=== PATIENT | female | born 1970 | race Caucasian/White ===

== ENCOUNTER 2016-11-03 10:26 | Outpatient (CLI) | payer MEDICAID | END 2016-11-03 10:27 | disposition home or self-care (01) | DX: M50.30 Other cervical disc degeneration, unspecified cervical region (principal); M51.36 Other intervertebral disc degeneration, lumbar region; M47.816 Spondylosis without myelopathy or radiculopathy, lumbar region ==

== ENCOUNTER 2016-11-19 16:14 | Emergency (ER) | payer MEDICAID | END 2016-11-19 17:30 | disposition home or self-care (01) | DX: S93.431A Sprain of tibiofibular ligament of right ankle, initial encounter (principal); W01.0XXA Fall on same level from slipping, tripping and stumbling without subsequent striking against object, initial encounter; Y93.01 Activity, walking, marching and hiking; E11.9 Type 2 diabetes mellitus without complications; Z79.84 Long term (current) use of oral hypoglycemic drugs; Z86.73 Personal history of transient ischemic attack (TIA), and cerebral infarction without residual deficits ==

== ENCOUNTER 2017-01-18 08:52 | Outpatient (CLI) | payer MEDICAID | END 2017-01-18 08:53 | disposition home or self-care (01) | DX: E78.5 Hyperlipidemia, unspecified (principal); E03.9 Hypothyroidism, unspecified ==

== ENCOUNTER 2017-04-27 16:49 | Outpatient (CLI) | payer MEDICAID ==
--- NOTE | 2017-04-28 12:34 | XRAY Report ---
TWO VIEW CHEST: 04/27/2017 CLINICAL INDICATION: Cough. FINDINGS: Frontal and lateral views of the chest demonstrate a normal cardiac silhouette. The lungs are clear. No effusion or pneumothorax. IMPRESSION: NORMAL CHEST. :9 JOB #: [id number] EXT JOB #:[id number]
== END 2017-04-27 16:50 | disposition home or self-care (01) ==
LOC: DI.S 16:49
PROVIDERS: ATTEND Nurse Practitioner Family
DX: R05 Cough (principal)
CPT/HCPCS: 71020

== ENCOUNTER 2017-05-31 10:46 | Outpatient (CLI) | payer MEDICAID ==
[2017-05-31 14:08] LABS: CHOL/HDL RATIO 6.1 (<4.4); CHOLESTEROL 275 mg/dL; HDL CHOLESTEROL 45 mg/dL; LDL/HDL RATIO 3.4 (<4.4); TRIGLYCERIDES 396 mg/dL; VLDL CHOLESTEROL 79 mg/dL
[2017-05-31 14:31] LABS: THYROID STIMULATING HORMONE 1.41 uIU/mL (0.34-5.60)
== END 2017-05-31 10:47 | disposition home or self-care (01) ==
LOC: LAB.N 10:46
PROVIDERS: ATTEND Nurse Practitioner Family
DX: E78.5 Hyperlipidemia, unspecified (principal); E03.9 Hypothyroidism, unspecified
CPT/HCPCS: 36415; 80061; 84439; 84443

== ENCOUNTER 2017-06-15 23:38 | Outpatient (CLI) | payer MEDICAID ==
[2017-06-15 19:13] LABS: HEMOGLOBIN A1C 0.54 g/dL
== END 2017-06-15 23:39 | disposition home or self-care (01) ==
LOC: LAB.N 23:38
PROVIDERS: ATTEND Nurse Practitioner Family
DX: E11.9 Type 2 diabetes mellitus without complications (principal)
CPT/HCPCS: 36415; 83036

== ENCOUNTER 2017-08-04 08:23 | Outpatient (CLI) | payer MEDICAID ==
[2017-08-04 13:57] LABS: BILIRUBIN,TOTAL 0.5 mg/dL (0.2-1.0); CHOL/HDL RATIO 4.2 (<4.4); CHOLESTEROL 152 mg/dL; HDL CHOLESTEROL 36 mg/dL; LDL/HDL RATIO 1.8 (<4.4); TOTAL PROTEIN 7.1 g/dL (6.7-8.2); TRIGLYCERIDES 248 mg/dL; VLDL CHOLESTEROL 50 mg/dL
[2017-08-04 13:59] LABS: BILIRUBIN,DIRECT < 0.1 mg/dL (0.1-0.5)
== END 2017-08-04 08:24 | disposition home or self-care (01) ==
LOC: LAB.N 08:23
PROVIDERS: ATTEND Nurse Practitioner Family
DX: E78.5 Hyperlipidemia, unspecified (principal)
CPT/HCPCS: 36415; 80061; 80076

== ENCOUNTER 2018-01-17 08:00 | Outpatient (CLI) | payer BC, MEDICAID ==
[2018-01-17 17:37] LABS: BILIRUBIN,URINE NEGATIVE (NEGATIVE); GLUCOSE, URINE (UA) NEGATIVE (NEGATIVE); KETONES,URINE (UA) NEGATIVE (NEGATIVE); LEUKOCYTE ESTERASE, URINE NEGATIVE (NEGATIVE); NITRITE,URINE NEGATIVE (NEGATIVE); OCCULT BLOOD,URINE NEGATIVE (NEGATIVE); PROTEIN,URINE NEGATIVE (NEGATIVE); UROBILINOGEN,URINE 0.2 (NORMAL) E.U./dL (NORMAL)
[2018-01-17 17:44] LABS: CLARITY,URINE CLEAR (CLEAR)
[2018-01-17 17:57] LABS: BACTERIA,URINE None Seen /HPF (None Seen); RBC,URINE None Seen /HPF (0-5); SQUAMOUS EPITHELIAL CELL,UR RARE Squamous (<= Few)
== END 2018-01-17 08:01 ==
LOC: LAB.R 08:00
PROVIDERS: ATTEND Nurse Practitioner Family
DX: R30.0 Dysuria (principal)
CPT/HCPCS: 81001; 87086

== ENCOUNTER 2018-01-30 12:03 | Outpatient (CLI) | payer BC ==
--- NOTE | 2018-01-31 14:30 | XRAY Report ---
LEFT HIP AND PELVIS: 01/30/2018 CLINICAL INDICATION: Left hip joint pain. FINDINGS: Frontal view of the hips and pelvis and frogleg lateral view of the left hip demonstrate no evidence of fracture or dislocation. Mild osteoarthritis is present. No foreign body is seen in the soft tissues. IMPRESSION: MILD LEFT HIP OSTEOARTHRITIS. TD: 01/31/2018 12:56
== END 2018-01-30 12:04 | disposition home or self-care (01) ==
LOC: DI.S 12:03
PROVIDERS: ATTEND Nurse Practitioner Family
DX: M16.12 Unilateral primary osteoarthritis, left hip (principal)

== ENCOUNTER 2018-07-05 09:46 | Outpatient (CLI) | payer BC ==
[2018-07-05 14:57] LABS: BASOPHILS # (AUTO) 0.1 10^3/uL (0.0-0.1); BASOPHILS % (AUTO) 1.4 %; EOSINOPHILS # (AUTO) 0.5 10^3/uL (0.0-0.7); EOSINOPHILS % (AUTO) 6.6 %; HGB - HEMOGLOBIN 12.2 g/dL (12.0-16.0); LYMPHOCYTES # (AUTO) 1.9 10^3/uL (1.5-3.5); LYMPHOCYTES % (AUTO) 26.4 %; MEAN CORPUSCULAR HEMOGLOBIN 30.8 pg (27.0-31.0); MEAN CORPUSCULAR HGB CONC 34.6 g/dL (32.0-36.0); MEAN CORPUSCULAR VOLUME 88.8 fL (81.0-99.0); MEAN PLATELET VOLUME 9.6 fL (7.9-10.8); MONOCYTES # (AUTO) 0.4 10^3/uL (0.0-1.0); MONOCYTES % (AUTO) 6.2 %; NEUTROPHILS # (AUTO) 4.3 10^3/uL (1.5-6.6); NEUTROPHILS % (AUTO) 59.4 %; PLT - PLATELET COUNT 314 10^3/uL (130-450); RED BLOOD COUNT 3.97 10^6/uL (4.20-5.40); RED CELL DISTRIBUTION WIDTH 13.3 % (12.0-15.0); WHITE BLOOD COUNT 7.3 x10^3/uL (4.8-10.8)
[2018-07-05 15:08] LABS: ALBUMIN 3.9 g/dL (3.2-5.5); ALBUMIN/GLOBULIN RATIO 1.3 (1.0-2.2); ALKALINE PHOSPHATASE 66 IU/L (42-121); ALT ALANINE AMINOTRANSFERASE 19 IU/L (10-60); AST ASPARTATE AMINOTRANSFERASE 21 IU/L (10-42); BILIRUBIN,TOTAL 0.7 mg/dL (0.2-1.0); BUN - BLOOD UREA NITROGEN 8 mg/dL (6-20); CALCIUM 9.4 mg/dL (8.5-10.3); CARBON DIOXIDE - CO2 28 mmol/L (21-32); CHLORIDE 100 mmol/L (101-111); CHOL/HDL RATIO 6.8 (<4.4); CHOLESTEROL 257 mg/dL; CREATININE 0.8 mg/dL (0.4-1.0); GFR - MDRD 77 (>89); GLUCOSE 110 mg/dL (70-100); HDL CHOLESTEROL 38 mg/dL; SODIUM 138 mmol/L (135-145)
[2018-07-05 15:32] LABS: HB2 TOTAL 12.3 g/dL; HEMOGLOBIN A1C 0.54 g/dL; HEMOGLOBIN A1C % 6.2 % (4.6-6.2)
[2018-07-05 15:34] LABS: LDL CHOLESTEROL,DIRECT 125 mg/dL; LDLD/HDL RATIO 3.3 (<4.4)
== END 2018-07-05 09:47 | disposition home or self-care (01) ==
LOC: LAB.N 09:46
PROVIDERS: ATTEND Nurse Practitioner Family
DX: E11.9 Type 2 diabetes mellitus without complications (principal); E78.5 Hyperlipidemia, unspecified; E03.9 Hypothyroidism, unspecified
CPT/HCPCS: 36415; 80053; 80061; 82043; 83036; 83721; 84443; 85025

== ENCOUNTER 2018-07-17 15:38 | Emergency (ER) | payer BC ==
--- NOTE | 2018-07-17 15:46 | ED Physician Documentation ---
PD HPI UPPER EXT INJURY - Stated complaint Stated Complaint: RT ELBOW INJ - History obtained from History obtained from: Patient - History of Present Illness Location: Right (She fell on her right elbow 10 days ago, mechanical fall and had persistent pain that was much worse this morning when she rolled over in bed and felt a pop or a snap. No other injuries. 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 - Present Medications Home Medications: Ambulatory Orders Medication Instructions Recorded Confirmed Gabapentin 300 mg PO TID 09/30/14 08/06/16 Levothyroxine [Synthroid] 25 mcg PO QDAC 09/30/14 08/06/16 Metformin HCl 1,000 mg PO BID 09/30/14 08/06/16 Red Yeast Rice 600 mg PO DAILY 09/30/14 08/06/16 Venlafaxine [Effexor] 37.5 mg PO DAILY 09/30/14 08/06/16 Doxycycline Hyclate 100 mg PO BID #14 tablet 08/06/16 Meloxicam 22.5 tab PO DAILY 08/06/16 08/06/16 Mupirocin 1 gm TOP BID #2 tub 08/06/16 - Allergies Allergies/Adverse Reactions: Allergies Allergy/AdvReac Type Severity Reaction Status Date / Time Sulfa (Sulfonamide Allergy Rash Verified 07/17/18 15:50 Antibiotics) codeine AdvReac Nausea Verified 07/17/18 15:50 hydromorphone HCl * AdvReac Unknown Verified 07/17/18 15:50 [From Dilaudid] - Social History Does the pt smoke?: No Smoking Status: Never smoker Does the pt drink ETOH?: Yes Does the pt have substance abuse?: No - Immunizations Immunizations are current?: Yes Immunizations: TDAP >10years/unknown - POLST Patient has POLST: No PD ED PE NORMAL - Vitals Vital signs reviewed: Yes - General General: Alert and oriented X 3, No acute distress - Neck Neck: Supple, no meningeal sign, No bony TTP - Extremities Extremities: Other (Right elbow is mildly tender over the medial epicondyles and olecranon, relatively good range of motion but unable to extend it all the way.) - Neuro Neuro: Alert and oriented X 3, Normal speech Results - Vitals Vitals: Oxygen O2 Source Room air - Rads (name of study) R elbow XR Radiology: EMP read contemporaneously (normal) PD MEDICAL DECISION MAKING - Sepsis Event Vital Signs: Oxygen O2 Source Room air Departure - Departure Disposition: 01 Home, Self Care Clinical Impression: Contusion of right elbow Qualifiers: Encounter type: initial encounter Qualified Code(s): S50.01XA - Contusion of right elbow, initial encounter Condition: Good Record reviewed to determine appropriate education?: Yes Instructions: ED Contusion Elbow Ch Comments: Tylenol or ibuprofen as needed for pain. Return if worse or if there are new symptoms develop. Follow-up with your doctor in a week if not better. Your blood pressure was elevated today on check into the emergency department. This does not mean that you have hypertension, it is a common phenomenon to come to the emergency department and have elevated blood pressure. I recommend that you see your primary care physician within the week to have it rechecked when you are feeling better.
[2018-07-17 15:50] VITALS: BP 129/92
--- NOTE | 2018-07-17 16:33 | XRAY Report ---
Reason: elbow inj Procedure Date: 07/17/2018 Accession Number: [id number] / [id number] Procedure: XR - Elbow 3 View RT CPT Code: FULL RESULT: EXAM: RIGHT ELBOW RADIOGRAPHY EXAM DATE: 07/17/2018 04:03 PM. CLINICAL HISTORY: Trauma, pain. COMPARISON: None. TECHNIQUE: 3 views. FINDINGS: Bones: Normal. No fractures or bone lesions. Joints: Normal. No effusion. No subluxation. Soft Tissues: Unremarkable. IMPRESSION: Normal elbow radiography. RADIA
== END 2018-07-17 16:46 | disposition home or self-care (01) ==
LOC: ED 15:38
DX: S50.01XA Contusion of right elbow, initial encounter (principal); X50.1XXA Overexertion from prolonged static or awkward postures, initial encounter; W19.XXXA Unspecified fall, initial encounter; R03.0 Elevated blood-pressure reading, without diagnosis of hypertension; E11.9 Type 2 diabetes mellitus without complications; Z79.84 Long term (current) use of oral hypoglycemic drugs
CPT/HCPCS: 99282; 99283

== ENCOUNTER 2018-12-03 20:54 | Outpatient (CLI) | payer BC ==
--- NOTE | 2018-12-04 12:18 | Ultrasound Report ---
Reason: PELVIC PAIN Procedure Date: 12/03/2018 Accession Number: [id number] / [id number] Procedure: US - Pelvic w/Transvaginal CPT Code: FULL RESULT: EXAM: PELVIC ULTRASOUND EXAM DATE: 12/03/2018 09:20 PM. CLINICAL HISTORY: PELVIC PAIN. COMPARISON: None. TECHNIQUE: Realtime transabdominal pelvic scan performed to identify the uterus and adnexa and as an overview of other pelvic structures, with static image documentation. FINDINGS: Visualization is limited due to a combination of patient body habitus and uterine angle. Uterus: 7.1 x 2.0 x 3.2 cm, volume 25 cc. Retroflexed position. Normal overall size and echotexture. Masses: None. Endometrium: 4 mm. Normal. Cervix: Unremarkable. Right Ovary: 1.6 x 1.1 x 1.4 cm, volume 1.3 cc. Normal echotexture and blood flow. Left Ovary: The ovary is not confidently identified. Free Fluid: None. Other: None. IMPRESSION: Limited visualization with LAD identified. RADIA
== END 2018-12-03 20:55 | disposition home or self-care (01) ==
LOC: DI 20:54
PROVIDERS: ATTEND Registered Nurse
DX: R10.2 Pelvic and perineal pain (principal)
CPT/HCPCS: 76830; 76856

== ENCOUNTER 2019-07-30 11:32 | Outpatient (CLI) | payer BC ==
[2019-07-30 19:40] LABS: HB2 TOTAL 12.6 g/dL; HEMOGLOBIN A1C 0.59 g/dL; HEMOGLOBIN A1C % 6.4 % (4.6-6.2)
[2019-07-30 21:04] LABS: ALBUMIN/GLOBULIN RATIO 1.3 (1.0-2.2); ALKALINE PHOSPHATASE 67 IU/L (42-121); ALT ALANINE AMINOTRANSFERASE 18 IU/L (10-60); AST ASPARTATE AMINOTRANSFERASE 22 IU/L (10-42); BILIRUBIN,TOTAL 0.6 mg/dL (0.2-1.0); BUN - BLOOD UREA NITROGEN 11 mg/dL (6-20); CARBON DIOXIDE - CO2 28 mmol/L (21-32); CHLORIDE 105 mmol/L (101-111); CHOL/HDL RATIO 7.1 (<4.4); CHOLESTEROL 250 mg/dL; CREATININE 0.6 mg/dL (0.4-1.0); GFR - MDRD 107 (>89); GLUCOSE 106 mg/dL (70-100); HDL CHOLESTEROL 35 mg/dL; SODIUM 140 mmol/L (135-145)
[2019-07-30 21:31] LABS: LDL CHOLESTEROL,DIRECT 109 mg/dL; LDLD/HDL RATIO 3.1 (<4.4)
== END 2019-07-30 23:59 | disposition home or self-care (01) ==
LOC: LAB.N 11:32
PROVIDERS: ATTEND Internal Medicine
DX: E78.5 Hyperlipidemia, unspecified (principal); E11.9 Type 2 diabetes mellitus without complications; E03.9 Hypothyroidism, unspecified
CPT/HCPCS: 36415; 80053; 80061; 83036; 83721; 84443

== ENCOUNTER 2020-01-06 17:25 | Outpatient (CLI) | payer BC | END 2020-01-06 17:26 | disposition home or self-care (01) | LOC: COV 17:25 | PROVIDERS: ATTEND Family Medicine | DX: R05 Cough (principal) | CPT/HCPCS: 81599 ==

== ENCOUNTER 2021-09-17 15:37 | Outpatient (CLI) | payer BC | END 2021-09-17 23:59 | disposition home or self-care (01) | LOC: LAB.N 15:37 | PROVIDERS: ATTEND Family Medicine | DX: R05.9 Cough, unspecified (principal); Z20.822 Contact with and (suspected) exposure to COVID-19 | CPT/HCPCS: 87275; 87276 ==

== ENCOUNTER 2021-11-03 08:00 | Outpatient (CLI) | payer BC | END 2021-11-03 23:59 | LOC: LAB 08:00 | PROVIDERS: ATTEND Physician Assistant | DX: J02.9 Acute pharyngitis, unspecified (principal); Z20.822 Contact with and (suspected) exposure to COVID-19 | CPT/HCPCS: 87070 ==

== ENCOUNTER 2021-12-27 08:00 | Outpatient (CLI) | payer BC ==
--- NOTE | 2021-12-27 16:43 | XRAY Report ---
PROCEDURE: Finger(s) RT INDICATIONS: SPRAIN OF R THUMB TECHNIQUE: AP hand, 3 views of the first finger(s) acquired. COMPARISON: None FINDINGS: Bones: No fractures or dislocations. No suspicious bony lesions. Soft tissues: No suspicious soft tissue calcifications. IMPRESSION: No visualized acute fracture or dislocation. However, occult injury cannot be excluded. Recommend asia rt interval imaging follow-up in 7-10 days as clinically indicated for additional evaluation. Reviewed by: Mirta Rios MD on 12/27/2021 4:42 PM PDT Approved by: Mirta Rios MD on 12/27/2021 4:42 PM PDT Station ID: [id number]
== END 2021-12-27 23:59 | disposition home or self-care (01) ==
LOC: DI.N 08:00
PROVIDERS: ATTEND Physician Assistant Medical
DX: S63.681A Other sprain of right thumb, initial encounter (principal)

== ENCOUNTER 2023-06-19 20:35 | Outpatient (CLI) | payer BC | END 2023-06-19 23:59 | disposition critical access hospital (66) | LOC: EMS 20:35 | DX: R55 Syncope and collapse (principal); R51.9 Headache, unspecified | CPT/HCPCS: A0425; A0429 ==

== ENCOUNTER 2023-06-19 20:54 | Emergency (ER) | payer BC ==
--- NOTE | 2023-06-19 21:30 | ED Physician Documentation ---
History of Present Illness - Stated complaint Stated Complaint: SYNCOPY - Chief complaint Chief Complaint: General - History obtained from History obtained from: Patient, EMS - Additonal information Additional information: 52-year-old female presents for possible syncopal episode occurred just prior to arrival. Patient states that she had just finished a "screaming match" with her daughter when she went to go do laundry. She felt lightheaded and then "slumped" against the wall and sat on the floor. She seemed to be completely out of it and sat against the ground until her male roommate found her and called 911. Vital signs unremarkable per EMS. On arrival patient stated that she felt "tired" but otherwise denied complaints. Denied preceding chest pain, shortness of breath, headache, abdominal pain prior to syncopal event. Review of Systems Constitutional: reports: Fatigue. denies: Fever, Chills Cardiac: denies: Chest pain / pressure, Palpitations, Calf pain Respiratory: denies: Dyspnea, Cough, Wheezing GI: denies: Abdominal Pain, Nausea, Vomiting, Constipation, Diarrhea Musculoskeletal: denies: Neck pain, Back pain, Extremity pain Neurologic: reports: Syncope. 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 - Present Medications Home Medications: Ambulatory Orders Medication Instructions Recorded Confirmed Gabapentin 300 mg PO TID 09/30/14 08/06/16 Levothyroxine [Synthroid] 25 mcg PO QDAC 09/30/14 08/06/16 Metformin HCl 1,000 mg PO BID 09/30/14 08/06/16 Red Yeast Rice 600 mg PO DAILY 09/30/14 08/06/16 Venlafaxine [Effexor] 37.5 mg PO DAILY 09/30/14 08/06/16 Doxycycline Hyclate 100 mg PO BID #14 tablet 08/06/16 Meloxicam 22.5 tab PO DAILY 08/06/16 08/06/16 Mupirocin 1 gm TOP BID #2 tub 08/06/16 - Allergies Allergies/Adverse Reactions: Allergies Allergy/AdvReac Type Severity Reaction Status Date / Time Sulfa (Sulfonamide Allergy Rash Verified 07/17/18 15:50 Antibiotics) codeine AdvReac Nausea Verified 07/17/18 15:50 hydromorphone HCl * AdvReac Unknown Verified 07/17/18 15:50 [From Dilaudid] - Social History Does the pt smoke?: No Smoking Status: Never smoker Does the pt drink ETOH?: Yes Does the pt have substance abuse?: No - Immunizations Immunizations are current?: Yes Immunizations: TDAP >10years/unknown - POLST Patient has POLST: No PD ED PE NORMAL - Vitals Vital signs reviewed: Yes - General General: Alert and oriented X 3, No acute distress, Well developed/nourished - HEENT HEENT: Atraumatic, PERRL, EOMI - Neck Neck: Supple, no meningeal sign, No bony TTP, C-Spine cleared by NEXUS criteria - Cardiac Cardiac: RRR, Strong equal pulses - Respiratory Respiratory: No respiratory distress, Clear bilaterally - Abdomen Abdomen: Soft, Non tender, Non distended - Back Back: No CVA TTP, No spinal TTP - Derm Derm: Normal color, Warm and dry, No rash - Extremities Extremities: No deformity, No tenderness to palpate, Normal ROM s pain, No edema - Neuro Neuro: Alert and oriented X 3, 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, No motor deficit, Normal speech - Psych Psych: Normal mood, Normal affect Results - Vitals Vitals: Vital Signs - 24 hr 06/19/23 06/19/23 06/19/23 21:03 21:54 23:27 Temperature 37 C 37 C 36.4 C L Heart Rate 71 72 71 Respiratory 14 20 20 Rate Blood Pressure 128/78 131/75 H 114/72 O2 Saturation 100 100 96 Oxygen O2 Source Room air - Labs Labs: Laboratory Tests 06/19/23 06/19/23 06/19/23 21:44 21:44 21:47 WBC 9.8 RBC 3.95 L Hgb 12.0 Hct 36.6 L MCV 92.7 MCH 30.4 MCHC 32.8 RDW 13.1 Plt Count 349 MPV 9.9 Neut # (Auto) 6.0 Lymph # (Auto) 2.6 [place] # (Auto) 0.8 Eos # (Auto) 0.2 Baso # (Auto) 0.1 Absolute Nucleated RBC 0.00 Nucleated RBC % 0.0 Sodium 138 Potassium 4.3 Chloride 102 Carbon Dioxide 27 Anion Gap 9.0 BUN 18 Creatinine 0.7 Estimated GFR (MDRD) 88 L Glucose 136 H Calcium 8.8 Total Bilirubin 0.4 AST 22 ALT 26 Alkaline Phosphatase 75 Troponin I High Sens 4.8 Total Protein 6.8 Albumin 3.7 Globulin 3.1 Albumin/Globulin Ratio 1.2 Urine Color YELLOW Urine Clarity CLEAR Urine pH 6.5 Ur Specific [place] 1.015 Urine Protein NEGATIVE Urine Glucose (UA) NEGATIVE Urine Ketones NEGATIVE Urine Occult Blood NEGATIVE Urine Nitrite NEGATIVE Urine Bilirubin NEGATIVE Urine Urobilinogen 0.2 (NORMAL) Ur Leukocyte Esterase NEGATIVE Urine RBC 0-5 Urine WBC 0-3 Ur Squamous Epith Cells RARE Squamous Urine Bacteria None Seen Urine Culture Comments NOT INDICATED PD Medical Decision Making - ED course Complexity details: reviewed results, re-evaluated patient, considered differential, d/w patient ED course: Well-appearing patient with syncopal episode after stressful verbal altercation with daughter. Currently asymptomatic. Patient's description of events seems to be vasovagal in nature. She is able to tell me that she remembers slumping against the wall and sliding to the ground. She denies hitting her head. Laboratory work is reviewed, unremarkable. Chest x-ray negative for acute f indings. EKG is sinus rhythm without concerning findings. Patient has remained asymptomatic while in the emergency department and is ambulatory to the restroom and back without difficulty. Patient counseled of all lab and imaging findings, I recommended PCP follow-up as well as recommending rest and hydration. Patient requested a note for work, which was provided. Departure - Departure Disposition: 01 Home, Self Care Clinical Impression: Syncope Qualifiers: Syncope type: unspecified Qualified Code(s): R55 - Syncope and collapse Condition: Stable Instructions: ED Fainting Unkn Cause Forms: PCP List Discharge Date/Time: 06/19/23 23:29
[2023-06-19 21:47] LABS: BASOPHILS # (AUTO) 0.1 10^3/uL (0.0-0.1); BASOPHILS % (AUTO) 0.9 %; EOSINOPHILS # (AUTO) 0.2 10^3/uL (0.0-0.7); EOSINOPHILS % (AUTO) 2.5 %; HCT - HEMATOCRIT 36.6 % (37.0-47.0); LYMPHOCYTES # (AUTO) 2.6 10^3/uL (1.5-3.5); LYMPHOCYTES % (AUTO) 26.6 %; MEAN CORPUSCULAR HEMOGLOBIN 30.4 pg (27.0-31.0); MEAN CORPUSCULAR HGB CONC 32.8 g/dL (32.0-36.0); MEAN CORPUSCULAR VOLUME 92.7 fL (81.0-99.0); MEAN PLATELET VOLUME 9.9 fL (7.9-10.8); MONOCYTES # (AUTO) 0.8 10^3/uL (0.0-1.0); MONOCYTES % (AUTO) 7.8 %; NEUTROPHILS % (AUTO) 61.3 %; PLT - PLATELET COUNT 349 10^3/uL (130-450); RED BLOOD COUNT 3.95 10^6/uL (4.20-5.40); RED CELL DISTRIBUTION WIDTH 13.1 % (12.0-15.0); WHITE BLOOD COUNT 9.8 x10^3/uL (4.8-10.8)
--- NOTE | 2023-06-19 21:54 | XRAY Report ---
PROCEDURE: Chest 1 View X-Ray INDICATIONS: SYNCOPE TECHNIQUE: One view of the chest was acquired. COMPARISON: Chest x-ray 01/14/2015 FINDINGS: Surgical changes and devices: None. Lungs and pleura: No pleural effusions or pneumothorax. Lungs are clear. Mediastinum: Mediastinal contours appear normal. Heart size is normal. Bones and chest wall: No suspicious bony lesions. Overlying soft tissues appear unremarkable. IMPRESSION: No acute cardiopulmonary disease. Reviewed by: Shay Lomas MD on 06/19/2023 9:53 PM PDT Approved by: Shay Lomas MD on 06/19/2023 9:53 PM PDT Station ID: [id number]
[2023-06-19 22:03] LABS: ALBUMIN 3.7 g/dL (3.2-5.5); ALBUMIN/GLOBULIN RATIO 1.2 (1.0-2.2); BILIRUBIN,TOTAL 0.4 mg/dL (0.2-1.0); CALCIUM 8.8 mg/dL (8.5-10.3); CREATININE 0.7 mg/dL (0.4-1.0); POTASSIUM 4.3 mmol/L (3.5-5.0); TOTAL PROTEIN 6.8 g/dL (6.7-8.2)
[2023-06-19 22:10] LABS: TROPONIN I HIGH SENSITIVITY 4.8 ng/L (2.3-14.8)
--- OUTSIDE RECORDS SUMMARY | 2023-06-19 22:16 | EXTERNAL MEDICAL SUMMARY RPT | Continuity of Care Document ---
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 Name Role Phone Unavailable Unavailable Unavailable Celia Be Unavailable Unavailable Allergies and Intolerances date description facility reaction severity (no date) Sulfa (Sulfonamide Antibiotics) [facility] (no reaction) (no severity) (no date) aspirin [facility] (no reaction) (no se verity) (no date) codeine [facility] (no reaction) (no se verity) (no date) hydromorphone [facility] (no reaction) (no severity) Medications date description facility 2023-04-14 00:00 Meloxicam [facility] 2023-04-14 00:00 Cyclobenzaprine [facility] Problems date description facility 2023-03-30 13:09 Unspecified injury o f left wrist, hand and finger(s), subseq [facility] 2023-04-14 00:00 Strain of lumbar region [facility] Procedures date description facility 2023-03-30 00:00 XR finger left, 2+ views [facility] Results/Labs test date facility value unit notes Social History date description facility 2023-03-22 00:00 Ex-smoker (finding) [facility] 2023-04-14 00:00 Ex-smoker (finding) [facility] Vital Signs date measurement value units 2023-03-22 00:00 heart_rate 112 /min 2023-03-22 00:00 o2_saturation 98 % 2023-03-22 00:00 temperature_metric 36.56 C 2023-03-22 00:00 temperature_standard 97.8 F 2023-03-22 00:00 weight_metric 54.43 kg 2023-03-22 00:00 weight_standard 120 lb 2023-04-14 00:00 BMI 24.2 kg/m2 2023-04-14 00:00 BP_diastolic 80 mmHg 2023-04-14 00:00 BP_systolic 157 mmHg 2023-04-14 00:00 heart_rate 96 /min 2023-04-14 00:00 height_metric 149.86 cm 2023-04-14 00:00 height_standard 59 in 2023-04-14 00:00 o2_saturation 99 % 2023-04-14 00:00 respiration_rate 18 /min 2023-04-14 00:00 temperature_metric 36.67 C 2023-04-14 00:00 temperature_standard 98 F 2023-04-14 00:00 weight_metric 54.43 kg 2023-04-14 00:00 weight_standard 120 lb
[2023-06-19 23:10] LABS: BILIRUBIN,URINE NEGATIVE (NEGATIVE); GLUCOSE, URINE (UA) NEGATIVE (NEGATIVE); KETONES,URINE (UA) NEGATIVE (NEGATIVE); LEUKOCYTE ESTERASE, URINE NEGATIVE (NEGATIVE); NITRITE,URINE NEGATIVE (NEGATIVE); OCCULT BLOOD,URINE NEGATIVE (NEGATIVE); PH,URINE 6.5 PH (5.0-7.5); PROTEIN,URINE NEGATIVE (NEGATIVE); UROBILINOGEN,URINE 0.2 (NORMAL) E.U./dL (NORMAL)
[2023-06-19 23:18] LABS: BACTERIA,URINE None Seen /HPF (None Seen); CLARITY,URINE CLEAR (CLEAR); RBC,URINE 0-5 /HPF (0-5); SQUAMOUS EPITHELIAL CELL,UR RARE Squamous (<= Few); WBC,URINE 0-3 /HPF (0-5)
[2023-06-19 23:34] VITALS: BP 114/72; O2SAT 96
== END 2023-06-19 23:29 | disposition home or self-care (01) ==
LOC: EDUNIT# → ED 20:54
DX: R55 Syncope and collapse (principal)
CPT/HCPCS: 36415; 80053; 81001; 84484; 85025; 87086; 93005; 99283; 99284